=== PATIENT | female | born 1935 | race Caucasian/White ===

== ENCOUNTER 2016-10-12 15:35 | Emergency (ER) | payer MEDICARE ==
[2016-10-12 17:14] LABS: URINE BILIRUBIN NEGATIVE (NEGATIVE); URINE BLOOD NEGATIVE (NEGATIVE); URINE GLUCOSE (UA) NEGATIVE (NEGATIVE); URINE LEUKOCYTE ESTERASE NEGATIVE (NEGATIVE); URINE NITRITE NEGATIVE (NEGATIVE); URINE PROTEIN NEGATIVE (NEGATIVE); URINE UROBILINOGEN NORMAL (0-1 mg/dl)
[2016-10-12 17:23] LABS: URINE APPEARANCE CLEAR; URINE COLOR LIGHT YELLOW
[2016-10-12 17:33] LABS: ABSOLUTE NEUTROPHIL COUNT 4.3 K/mm3 (1.8-7.7); BASO % 0.6 % (0.2-1.0); EOS # 0.1 (0.0-0.5); EOS % 1.5 % (0.9-2.9); HEMATOCRIT 39.2 % (37.0-47.0); HEMOGLOBIN 12.9 gm/l (12.0-16.0); IMM NEUT% 0.3 % (0-1); LYMPH # 1.4 (1.0-4.8); LYMPH % 21.8 % (15-45); MEAN CELL VOLUME 97.3 fl (81.0-99.0); MEAN CORPUSCULAR HGB CONC 32.9 g/dl (33.0-37.0); MEAN PLATELET VOLUME 9.4 fl (7.4-10.4); MONO # 0.6 (0.0-0.8); MONO % 9.7 % (4-12); NEUT % 66.1 % (43-75); PLATELET COUNT 217 K/mm3 (130-400); RED CELL DISTRIBUTION WIDTH 11.9 % (11.5-14.5)
[2016-10-12] MEDS ORDERED: SODIUM CHLORIDE 0.9% 1,000 ML ONE (17:45)
[2016-10-12] MEDS ORDERED: ONDANSETRON 4 MG/2ML 2 ML VIAL ONE (17:45)
[2016-10-12 17:49] LABS: ALB/GLOB RATIO 1.2 (>1.0); ALBUMIN 3.5 gm/dL (3.5-5.7); CALCIUM 9.1 mg/dL (8.6-10.3)
== END 2016-10-12 19:02 | disposition home or self-care (01) ==
LOC: ED 15:35
DX: R11.0 Nausea (principal); G47.00 Insomnia, unspecified; E11.9 Type 2 diabetes mellitus without complications